=== PATIENT | male | born 1965 | race Hispanic/Latino ===

== ENCOUNTER 2017-07-29 12:36 | Outpatient (CLI) | payer OTHER ==
[2017-07-29] MEDS ORDERED: Gadobenate Dimeglumine 529 MG/1 ML (20ML VIAL) ONE (15:03)
--- NOTE | 2017-07-29 17:12 | MRI ---
BRAIN MRI WITH AND WITHOUT CONTRAST: Date: 07-29-17 Comparison: None. Correlation: Brain CT 02-18-12 Technique: Brain MRI is performed with and without intravenous gadolinium administration. Multisequen ce, multiplanar imaging was performed. History: Dementia of the frontal lobe. FINDINGS: Extensive hypointensity along the falx and the left temporoparietal and frontal dura due to calcifica tion as demonstrated on CT. Additional small microcalcifications are present along the right frontopa rietal dura near the vertex. No acute hemorrhages are appreciated. There is a persistent extraaxial collection along the left convexity. No significant midline shift. B asilar cisterns are patent. Age appropriate brain volume. Cortical espinosa white matter differentiation is preserved. Ventricles and sulci are patent and symmetric. Central arterial flow voids are maintained. Absent restricted diffusion. No pathologic enhancement of the brain parenchyma. Mucosal disease involving the paranasal sinuses. Adequate mastoid air cell aeration. IMPRESSION: 1. Chronic changes involving the dura and brain parenchyma. No acute intracranial process. 2. No abnormal enhancement. POS: ROXANNA
== END 2017-07-29 12:37 | disposition home or self-care (01) ==
LOC: MRI 12:36
PROVIDERS: ATTEND Family Medicine
DX: G31.09 Other frontotemporal neurocognitive disorder (principal)
CPT/HCPCS: 70553; A9579

== ENCOUNTER 2017-10-14 08:06 | Outpatient (CLI) | payer OTHER | END 2017-10-14 08:07 | disposition home or self-care (01) | LOC: EEG 08:06 | PROVIDERS: ATTEND Psychiatry & Neurology Neurology | DX: G40.209 Localization-related (focal) (partial) symptomatic epilepsy and epileptic syndromes with complex partial seizures, not intractable, without status epilepticus (principal) | CPT/HCPCS: 95816 ==

== ENCOUNTER 2019-04-26 15:03 | Emergency (ER) | payer MEDICAID | END 2019-04-26 17:10 | disposition home or self-care (01) | LOC: ERS 15:03 | DX: K13.0 Diseases of lips (principal); F03.90 Unspecified dementia, unspecified severity, without behavioral disturbance, psychotic disturbance, mood disturbance, and anxiety; E78.00 Pure hypercholesterolemia, unspecified; G40.909 Epilepsy, unspecified, not intractable, without status epilepticus; Z79.899 Other long term (current) drug therapy | CPT/HCPCS: 99283 ==

== ENCOUNTER 2021-05-15 11:46 | Emergency (ER) | payer MEDICAID ==
[2021-05-15] MEDS ORDERED: Acetaminophen 500 MG TAB ONE (12:11)
[2021-05-15 17:01] LABS: SARS-CoV-2 PCR by NAA DETECTED (NotDetected)
== END 2021-05-15 12:54 | disposition home or self-care (01) ==
LOC: ERS 11:46
DX: U07.1 COVID-19 (principal); E78.00 Pure hypercholesterolemia, unspecified; Z79.899 Other long term (current) drug therapy
CPT/HCPCS: 99283; U0003; U0005

== ENCOUNTER 2022-10-16 13:19 | Outpatient (CLI) | payer MEDICARE | END 2022-10-16 13:20 | disposition home or self-care (01) | LOC: BICMRI 13:19 | PROVIDERS: ATTEND Psychiatry & Neurology Neurology | DX: G40.209 Localization-related (focal) (partial) symptomatic epilepsy and epileptic syndromes with complex partial seizures, not intractable, without status epilepticus (principal); S06.5XAA Traumatic subdural hemorrhage with loss of consciousness status unknown, initial encounter | CPT/HCPCS: 70553 ==